=== PATIENT | male | born 1980 | race Caucasian/White ===

== ENCOUNTER 2024-05-16 06:01 | Day surgery (SDC) | payer OTHER ==
[2024-05-12 11:55] VITALS: BMI 23.6
[2024-05-16 06:50] VITALS: BP 111/82; PULSE 94; RESP 16; TEMP 97.5
== END 2024-05-16 08:30 | disposition home or self-care (01) ==
LOC: FASU 06:01
PROVIDERS: ATTEND Orthopaedic Surgery
DX: Z53.9 Procedure and treatment not carried out, unspecified reason (principal)
CPT/HCPCS: 82962

== ENCOUNTER → 2024-11-07 | Day surgery (SDC) | payer OTHER ==
[2024-11-02 14:11] VITALS: BMI 19.3
[~2024-11-07] MED LIST: ACETAMINOPHEN 500 MG TABLET (FP) PO PRN; BUPIVACAINE HCL/EPINEPHRINE/PF 30 ML VIAL IJ ONE; BUPIVACAINE HCL/PF 2.5 MG/ML - 30 ML VIAL IJ ONE; EPINEPHrine 1:1,000 1,000 MCG/ML ML ONE; FENTANYL CITRATE/PF 50 MCG/ML VIAL ONE; LACTATED RINGERS SOLUTION 1,000 ML IV SCH; MIDAZOLAM HCL 2 MG/2 ML SINGLE DOSE VIAL ONE; PROPOFOL 20 ML ONE; SUCCINYLCHOLINE CHLORIDE 200 MG/10 ML SYRINGE ONE; oxyCODONE HCL 5 MG TABLET PO PRN
[2024-11-07 06:37] VITALS: RESP 16
[2024-11-07 09:42] VITALS: PULSE 79; TEMP 97.9
[2024-11-07 11:00] VITALS: BP 97/57
== END | disposition home or self-care (01) ==
LOC: FASU 05:57
PROVIDERS: ATTEND Orthopaedic Surgery
PROC: 0SBC4ZZ Excision of Right Knee Joint, Percutaneous Endoscopic Approach (ICD-10-PCS; principal; 2024-11-07 08:04)
DX: S83.221D Peripheral tear of medial meniscus, current injury, right knee, subsequent encounter (principal); M65.161 Other infective (teno)synovitis, right knee; M22.41 Chondromalacia patellae, right knee; X58.XXXD Exposure to other specified factors, subsequent encounter
CPT/HCPCS: 82962; 94760